=== PATIENT | female | born 1970 | race Caucasian/White ===

== ENCOUNTER → 2017-01-29 | Outpatient (CLI) | payer MEDICARE, OTHER ==
--- NOTE | 2017-01-30 08:12 | RAD ---
DATE: 01/29/17 EXAM: MAMMO DEENA SCREENING BILATERAL HISTORY: Routine screening, baseline exam COMPARISON: None available This study was interpreted with the benefit of Computerized Aided Detection (CAD). TECHNIQUE: Routine 2-D and 3-D CC and MLO views of both breasts are obtained. FINDINGS: Breast Density: SCATTERED The breast parenchyma shows scattered fibroglandular densities. Breast parenchyma level B. . There is an apparent nodular density in the right upper medial breast, best seen on tomogram views. Occasional benign calcifications are seen in both breasts No suspicious clustered microcalcifications or architectural distortion seen. IMPRESSION: Apparent nodular density in the right upper medial breast, zone B. Evaluation with right breast ultrasound may be of additional benefit. BI-RADS CATEGORY: 0 INCOMPLETE: NEED ADDITIONAL IMAGING EVALUATION AND/OR PRIOR MAMMOGRAMS FOR COMPARISON. RECOMMENDED FOLLOW-UP: ADD ADDITIONAL IMAGING PQRS compliance statement: Patient information was entered into a reminder system with a target due date for the next mammogram. Mammography is a sensitive method for finding small breast cancers, but it does not detect them all and is not a substitute for careful clinical examination. A negative mammogram does not negate a clinically suspicious finding and should not result in delay in biopsying a clinically suspicious abnormality. "Our facility is accredited by the [employer] Mammography [employer]."
== END | disposition home or self-care (01) ==
LOC: MAMMO 15:17
PROVIDERS: ATTEND Family Medicine
DX: Z12.31 Encounter for screening mammogram for malignant neoplasm of breast (principal)
CPT/HCPCS: 77063; G0202; 77067

== ENCOUNTER → 2021-04-15 | Outpatient (CLI) | payer MEDICARE, OTHER ==
--- NOTE | 2021-04-15 16:16 | RAD ---
EXAMINATION: MG DIAGNOSTIC BILAT History: The patient presented for screening mammogram. She had been recalled from a screening mammog julieta on 01/29/2017 and was lost to follow-up, therefore this was changed to diagnostic mammogram. Comparison: Screening mammogram 01/29/2017. Technique: Bilateral digital diagnostic mammogram views were obtained. CAD was utilized. 3-D tomosyn thesis images were acquired. Findings: Breast Tissue Density B : There are scattered areas of fibroglandular density. There is a 6 mm ovoid nodule in the upper inner left breast at 11:00, 2.7 cm from nipple. This persis ts on CC spot compression. The asymmetry in the upper left breast on 01/29/2017 is not seen on today's exam. There is no suspicious mass in the right breast. No calcifications or architectural distortion in either breast. IMPRESSION: 6 mm left breast nodule at 11:00 2.7 cm from the nipple. This persists on spot compression. Recommend ultrasound to further evaluate. BI-RADS Category 0: Incomplete: Need additional imaging evaluation. The images were reviewed with computer aided detection. Patient information is entered into the reminder system with a target due date for the next screening mammogram. Mammography is the most sensitive method for finding small breast cancers, but it does not detect the m all and is not a substitute for careful clinical examination. A negative mammogram does not negate a clinically suspicious finding and should not result in delay in biopsying a clinically suspicious a bnormality. "Our facility is accredited by the [employer] Mammography [employer]." Electronically signed by: Delisa Avalos MD (04/15/2021 4:14 PM) [email or web address]
== END ==
LOC: MAMMO 15:22
PROVIDERS: ATTEND Family Medicine
DX: N63.22 Unspecified lump in the left breast, upper inner quadrant (principal); R92.2 Inconclusive mammogram
CPT/HCPCS: 77066

== ENCOUNTER → 2021-06-15 | Outpatient (CLI) | payer MEDICARE, OTHER ==
--- NOTE | 2021-06-15 16:16 | RAD ---
US BREAST LTD 06/15/2021 2:41 PM INDICATION: Left breast mass COMPARISON: Bilateral mammogram 04/15/2021 TECHNIQUE: Targeted sonographic evaluation of the left breast was performed. FINDINGS: At the 11:00 position, 3 cm from the nipple there is a circumscribed mass which is hypoechoic with th rough transmission suggestive of a cluster of cysts or complex cyst. Findings are probably benign. Si x-month follow-up left breast ultrasound and mammogram is recommended. IMPRESSION: Probably benign finding of the left breast at the 11:00 position, 3 cm from nipple either representin g cluster of cysts or complicated cyst. BI-RADS category: 3; Probably Benign Recommendations: Six-month follow-up imaging is recommended. Electronically signed by: Bri Brandon MD (06/15/2021 4:13 PM) [email or web address]
== END ==
LOC: US 14:36
PROVIDERS: ATTEND Family Medicine
DX: N63.22 Unspecified lump in the left breast, upper inner quadrant (principal)
CPT/HCPCS: 76642